=== PATIENT | male | born 1990 ===

== ENCOUNTER 2023-01-31 22:58 | Emergency (ER) | payer SELFPAY ==
[2023-01-31] MEDS ORDERED: HYDROCODONE/APAP 7.5/325 MG TAB ONE (23:55)
[2023-01-31] MEDS ORDERED: IBUPROFEN 400 MG TAB ONE (23:55)
--- NOTE | 2023-02-01 01:19 | ER ---
Nurse's Notes [facility] Name: Baron Aquino Age: 32 yrs Sex: Male : 1990 Arrival Date: 01/31/2023 Time: 22:58 Bed 14 Private MD: Diagnosis: Achilles tendinitis, left leg Presentation: 01/31 23:21 Chief complaint: Patient states: LEFT ANKLE SWELLING AND PAIN STARTED TONIGHT. NO jj7 TRAUMA OR FALLS. Coronavirus screen: At this time, the client does not indicate any symptoms associated with coronavirus-19. Ebola Screen: No symptoms or risks identified at this time. Initial Sepsis Screen: Does the patient meet any 2 criteria? No. Patient's initial sepsis screen is negative. Does the patient have a suspected source of infection? No. Patient's initial sepsis screen is negative. Risk Assessment: Do you want to hurt yourself or someone else? Patient reports no desire to harm self or others. Onset of symptoms was January 31, 2023. 23:21 Method Of Arrival: Ambulatory [facility] 23:21 Acuity: RON 4 jj7 Triage Assessment: 23:25 General: Appears in no apparent distress. comfortable, Behavior is calm, cooperative, jj7 appropriate for age. Pain: Complains of pain in left lateral ankle Pain currently is 8 out of 10 on a pain scale. Musculoskeletal: Swelling present in left lateral ankle. Historical: - Allergies: 23:25 No Known Allergies; jj7 - PMHx: 23:25 None; jj7 - PSHx: 23:25 Appendectomy; jj7 - Immunization history:: Adult Immunizations not up to date. - Social history:: Smoking status: Patient denies any tobacco usage or history of. Patient/guardian denies using alcohol, street drugs. Screenin:26 [facility] ED Fall Risk Assessment (Adult) History of falling in the last 3 months, jj7 including since admission No falls in past 3 months (0 pts) Confusion or Disorientation No (0 pts) Intoxicated or Sedated No (0 pts) Impaired Gait No (0 pts) Mobility Assist Device Used No (0 pt) Altered Elimination No (0 pt) Score/Fall Risk Level 0 - 2 = Low Risk. 23:26 Abuse screen: Denies threats or abuse. Nutritional screening: No deficits noted. jj7 Tuberculosis screening: No symptoms or risk factors identified. Assessment: 23:26 Reassessment: SEE TRIAGE ASSESSMENT. jj7 02/01 01:27 Reassessment: Patient appears in no apparent distress at this time. No changes from lg3 previously documented assessment. Patient and/or family updated on plan of care and expected duration. Pain level reassessed. Patient is alert, oriented x 3, equal unlabored respirations, skin warm/dry/pink. Patient states feeling better. Patient states symptoms have improved. Vital Signs: 01/31 23:21 BP 132 / 74; Pulse 92; Resp 16; Temp 99; Pulse Ox 99% ; Weight 104.33 kg; Height 5 ft. jj7 11 in. ; Pain 8/10; 02/01 01:26 BP 128 / 76; Pulse 88; Resp 17 S; Pulse Ox 100% on R/A; lg3 01/31 23:21 Body Mass Index 32.08 (104.33 kg, 180.34 cm) jj7 01/31 23:21 Pain Scale: Adult j7 ED Course: 01/31 22:59 Patient arrived in ED. jj6 23:01 Kojo Morfin PA is PHCP. cp 23:01 Alden Nicolas MD is Attending Physician. cp 23:24 Triage completed. jj7 23:25 Arm band placed on left wrist. jj7 23:26 Patient has correct armband on for positive identification. jj7 23:45 US Extremity Venous Unilateral Ltd Sent. jj7 23:55 XRAY Ankle LEFT 3 view In Process Unspecified. EDMS 02/01 00:04 Curt Mclaughlin, SANCHEZ is Primary Nurse. bp 00:16 US Extremity Venous Unilateral Ltd In Process Unspecified. EDMS 01:18 Kobi Sahni MD is Referral Physician. cp 01:33 No provider procedures requiring assistance completed. Patient did not have IV access lg3 during this emergency room visit. Administered Medications: 01/31 23:45 Drug: Ibuprofen PO 800 mg PO once Route: PO; jj7 02/01 01:16 Follow up: Response: No adverse reaction; Marked relief of symptoms; Pain is decreased lg3 01/31 23:45 Drug: Hydrocodone-Acetaminophen PO (7.5 mg-325 mg) 1 tabs PO once; RASS on ADMIN: jj7 Combtv4, Very Agttd3, Agttd2, Rstlss1, AlertClm0, Drwsy-1, Lt Sdtn-2, Mod Sdtn-3, Dp Sdtn-4, UnArsble-5 Route: PO; 02/01 01:16 Follow up: Response: No adverse reaction; Marked relief of symptoms; Pain is decreased lg3 Medication: 01/31 23:26 VIS not applicable for this client. jj7 Outcome: 02/01 01:19 Discharge ordered by . ellen 01:33 Discharged to home ambulatory, with friend, lg3 01:33 Condition: stable 01:33 Discharge instructions given to patient, Instructed on discharge instructions, follow up and referral plans. medication usage, Demonstrated understanding of instructions, follow-up care, medications, Prescriptions given X 1, 01:34 Patient left the ED. lg3 Signatures: Dispatcher [employer] EDMS Kojo Morfin PA PA cp Peltier, Brian, RN RN Jenn Guzman RN RN lg3 Odalys Nunnj6 Mario Ribeiro RN RN jj7
--- NOTE | 2023-02-01 01:19 | EDPHYS ---
Physician Documentation [facility] Name: Baron Aquino Age: 32 yrs Sex: Male : 1990 Arrival Date: 01/31/2023 Time: 22:58 Bed 14 Private MD: ED Physician Alden Nicolas HPI: 01/31 23:45 This 32 yrs old Male presents to ER via Ambulatory with complaints of Swelling of Lower cp Extremity. 23:45 The patient presents with pain, that is acute. The complaints affect the left ankle. cp Onset: The symptoms/episode began/occurred today. 23:45 Associated signs and symptoms: The patient has no apparent associated signs or cp symptoms, Pertinent negatives: calf tenderness, fever, numbness, injury. Severity of symptoms: in the emergency department the symptoms are unchanged, despite home interventions. Historical: - Allergies: 23:25 No Known Allergies; jj7 - PMHx: 23:25 None; jj7 - PSHx: 23:25 Appendectomy; jj7 - Immunization history:: Adult Immunizations not up to date. - Social history:: Smoking status: Patient denies any tobacco usage or history of. Patient/guardian denies using alcohol, street drugs. ROS: 23:50 MS/extremity: Positive for pain, swelling, tenderness, of the left ankle, Negative for cp injury or acute deformity, decreased range of motion, paresthesias, 23:50 Constitutional: Negative for body aches, chills, fever, poor PO intake, cp 23:50 Respiratory: Negative for cough, shortness of breath, wheezing, 23:50 Abdomen/GI: Negative for abdominal pain, nausea, vomiting, and diarrhea, 23:50 Back: Negative for pain at rest, pain with movement, 23:50 Skin: Negative for cellulitis, rash, 23:50 All other systems are negative, Exam: 23:55 Constitutional: The patient appears in no acute distress, alert, awake, non-toxic, well cp developed, well nourished, uncomfortable, 23:55 Head/Face: Normocephalic, atraumatic. cp 23:55 Chest/axilla: Inspection: normal, 23:55 Cardiovascular: Rate: normal, Pulses: Pulses are 2+ in left dorsalis pedis artery. 23:55 Respiratory: the patient does not display signs of respiratory distress, Respirations: normal, no use of accessory muscles, no retractions, labored breathing, is not present, Breath sounds: are clear throughout, no decreased breath sounds, no stridor, no wheezing, 23:55 Back: pain, is absent, 23:55 Musculoskeletal/extremity: Extremities: grossly normal except: noted in the left lower leg: tenderness along distal calf and Achilles tendon, mild swelling noted lateral left ankle, overlying skin w/o signs of cellulitis, ROM: limited passive range of motion due to pain, in the left ankle, flexion and extension, Vital Signs: 23:21 BP 132 / 74; Pulse 92; Resp 16; Temp 99; Pulse Ox 99% ; Weight 104.33 kg; Height 5 ft. jj7 11 in. ; Pain 11/05; 02/01 01:26 BP 128 / 76; Pulse 88; Resp 17 S; Pulse Ox 100% on R/A; lg3 01/31 23:21 Body Mass Index 32.08 (104.33 kg, 180.34 cm) [facility] 01/31 23:21 Pain Scale: Adult j7 MDM: 01/31 23:31 Patient medically screened. 02/01 00:00 Differential diagnosis: fracture, sprain, gout, cellulitis, DVT, septic joint, cp tendonitis. 00:10 ED course: [facility] reports DVT study negative. cp 01:18 Data reviewed: vital signs, nurses notes, radiologic studies, plain films, ultrasound. 01:18 I considered the following discharge prescriptions or medication management in the emergency department Medications were administered in the Emergency Department. See MAR. Independent interpretation of the following test(s) in the Emergency Department X-Ray: My interpretation is images of left ankle negative for fracture. Counseling: I had a detailed discussion with the patient and/or guardian regarding the historical points, exam findings, and any diagnostic results supporting the discharge/admit diagnosis, the need for outpatient follow up, a orthopedic surgeon, to return to the emergency department if symptoms worsen or persist or if there are any questions or concerns that arise at home. 01:18 Response to treatment: the patient's symptoms have markedly improved after treatment, cp and as a result, I will discharge patient, patient placed in walking boot for comfort and support. 01/31 23:36 Order name: Extremity Venous Unilateral Ltd 01/31 23:36 Order name: XRAY Ankle LEFT 3 view cp 02/01 01:17 Order name: Walking boot; Complete Time: 01:33 cp Administered Medications: 01/31 23:45 Drug: Ibuprofen PO 800 mg PO once Route: PO; jj7 02/01 01:16 Follow up: Response: No adverse reaction; Marked relief of symptoms; Pain is decreased lg3 01/31 23:45 Drug: Hydrocodone-Acetaminophen PO (7.5 mg-325 mg) 1 tabs PO once; RASS on ADMIN: jj7 Combtv4, Very Agttd3, Agttd2, Rstlss1, AlertClm0, Drwsy-1, Lt Sdtn-2, Mod Sdtn-3, Dp Sdtn-4, UnArsble-5 Route: PO; 02/01 01:16 Follow up: Response: No adverse reaction; Marked relief of symptoms; Pain is decreased lg3 Disposition: 02:24 Co-signature as Attending Physician, Alden Nicolas MD I agree with the assessment sp4 and plan of care. I reviewed the patient's care provided by the Advanced Practice Provider and agree with the diagnosis and treatment plan. Disposition Summary: 02/01/23 01:19 Discharge Ordered Notes: Location: Home cp Problem: new cp Symptoms: have improved cp Condition: Stable cp Diagnosis - Achilles tendinitis, left leg cp Followup: cp - With: Kobi Sahni MD - When: 2 - 3 days - Reason: Recheck today's complaints Discharge Instructions: - Discharge Summary Sheet cp - Achilles Tendinitis cp Forms: - Medication Reconciliation Form cp - Thank You Letter cp - Antibiotic Education cp - Prescription Opioid Use cp - Patient Portal Instructions cp - Leadership Thank You Letter cp Prescriptions: - indomethacin 50 mg Oral capsule - take 1 capsule ORAL route 3 times per day administer with food or milk; 20 cp capsule; Refills: 0, Product Selection Permitted Signatures: Dispatcher [employer] EDSC Kojo Morfin PA PA cp Johnson, Juwairiyah, RN RN jjAlden Sanches MD MD sp4 Jenn Boucher RN lg3 Corrections: (The following items were deleted from the chart) 22:19 01:18 Response to treatment: the patient's symptoms have markedly improved after cp treatment, and as a result, I will discharge patient, cp
[2023-02-01 01:38] VITALS: TEMP 99
[2023-02-01 01:40] VITALS: BP 128/76; O2SAT 100
--- NOTE | 2023-02-01 12:17 | RAD REPORT ---
EXAM DESCRIPTION: Ankle Left 3 View XR Left Ankle 3 Views CLINICAL HISTORY: Pain, Swelling COMPARISON: None. TECHNIQUE: Left Ankle 3 Views FINDINGS: No fracture or dislocation. No significant sclerotic/lytic bone lesion. Joint spaces unremarkable. Soft tissues unremarkable. IMPRESSION: Normal Left Ankle Radiographs. Electronically signed by: Jorge A Snider MD 02/01/2023 12:17 AM STEP FINISHER Due to temporary technical issues with the PACS/Fluency reporting system, reports are being signed by the in house radiologist without review as a courtesy to ensure prompt reporting. The interpreting r adiologist is fully responsible for the content of the report.
--- NOTE | 2023-02-01 12:18 | RAD REPORT ---
EXAM DESCRIPTION: Extremity Venous Uni Ltd CLINICAL HISTORY: 32 years, Male, PAIN COMPARISON: None. FINDINGS: Grayscale imaging as well as spectral and color Doppler interrogation of the deep venous s ystem of left lower extremity was performed with visualization from the common femoral veins to the p opliteal veins and posterior tibial vein. There is normal compressibility, augmentation and flow with no visualized thrombus. No focal fluid collection is identified. IMPRESSION: No left lower extremity DVT. Electronically signed by: Dario Hoffman DO 02/01/2023 12:43 AM FUR SORTER Due to temporary technical issues with the PACS/Fluency reporting system, reports are being signed by the in house radiologist without review as a courtesy to ensure prompt reporting. The interpreting r adiologist is fully responsible for the content of the report.
== END 2023-02-01 01:34 | disposition home or self-care (01) ==
LOC: ER 22:58
DX: M76.62 Achilles tendinitis, left leg (principal)
CPT/HCPCS: 93971; 99283